=== PATIENT | male | born 1950 ===

== ENCOUNTER 2021-04-06 09:56 | Inpatient (IN) | payer OTHER ==
[~2021-04-06] VITALS: Ht 162.6 cm; Wt 63.5 kg
[~2021-04-06 09:56] MED LIST: METAMUCIL0.52 G; OMEGA 3 FISH OI1 CAP; OMEPRAZOLE20 MG; ZANTAC150 M1
[2021-04-06] MEDS ORDERED: ATACAND32 MG PO (10:17)
[2021-04-06] MEDS ORDERED: MIRALAX17 GM PO (10:17)
[2021-04-12] MEDS ORDERED: CEFUROXIME500 MG PO (11:03)
== END 2021-04-07 13:41 | disposition home or self-care (01) | DRG 700 ==
LOC: ER 09:56 → SURH 15:08
PROVIDERS: ADMIT Urology; ATTEND Urology
PROC: 0T9030Z Drainage of Right Kidney with Drainage Device, Percutaneous Approach (ICD-10-PCS; principal; 2021-04-06)
DX: S37.39XA Other injury of urethra, initial encounter (principal); X58.XXXA Exposure to other specified factors, initial encounter; Y93.89 Activity, other specified; Y92.89 Other specified places as the place of occurrence of the external cause; Y99.8 Other external cause status; N13.9 Obstructive and reflux uropathy, unspecified; N40.0 Benign prostatic hyperplasia without lower urinary tract symptoms; Z20.822 Contact with and (suspected) exposure to COVID-19

== ENCOUNTER → 2021-04-13 | Day surgery (SDC) | payer OTHER ==
[~2021-04-13] MED LIST changes: +ATACAND32 MG PO; +CEFUROXIME500 MG PO; +MIRALAX17 GM PO
== END | disposition home or self-care (01) ==
LOC: ADM 04-12 09:45 → CIR.AMB 06:33
PROVIDERS: ATTEND Urology
DX: S37.39XA Other injury of urethra, initial encounter (principal); Z20.822 Contact with and (suspected) exposure to COVID-19